=== PATIENT | male | born 1955 | race Hispanic/Latino ===

== ENCOUNTER → 2019-03-08 | Outpatient (CLI) | payer MEDICARE ==
--- NOTE | 2019-03-08 10:23 | Diagnostic Imaging Report ---
EXAM: US ABDOMEN COMPLETE DATE: 03/08/2019 9:10 AM INDICATION: Elevated liver enzymes COMPARISON: None TECHNIQUE: Transverse and longitudinal pickett scale and color doppler sonographic images of the upper abdomen were obtained. FINDINGS: There is no evidence of fluid or masses seen in the area of clinical concern in the right lower quadrant. LIVER 16.8 cm in the right midclavicular line. Increased echogenicity of the liver with normal contour, no masses. SPLEEN 9.7 cm in maximum diameter. Normal echogenicity, no masses. GALLBLADDER No gallbladder wall thickening, distension, stone, or pericholecystic fluid. NEgative reported sonographic Gr's sign. Gallbladder wall measures 2 mm. BILE DUCTS No intra nor extra-hepatic biliary dilation. Common bile duct measures 3 mm PANCREAS: Visualized portions are normal. RIGHT KIDNEY: 11.2 cm Echogenicity: Normal Collecting System: No hydronephrosis Stones: None Cyst/Mass: None LEFT KIDNEY: 11.4 cm Echogenicity: Normal Collecting System: No hydronephrosis Stones: None Cyst/Mass: None VESSELS: Aorta: Visualized portions are within normal size limits Inferior Vena Cava: Visualized portions are normal Main Portal Vein: 0.7 cm, normal size with hepatopetal flow. FREE FLUID: None IMPRESSION: Hepatomegaly and diffuse hepatic steatosis. Signed by: Humza Garza MD on 03/08/2019 10:19 AM
--- NOTE | 2019-03-08 10:34 | Diagnostic Imaging Report ---
EXAM: CT Chest WITHOUT intravenous contrast 03/08/2019 9:10 AM INDICATION: High risk lung cancer screening, smoking history COMPARISON: Chest radiograph of 04/17/2010 TECHNIQUE: Chest was scanned utilizing a multidetector helical scanner from the lung apex through the level of the adrenal glands without administration of IV contrast. Coronal and sagittal reformations were obtained. Routine protocol was performed. IV CONTRAST: None RADIATION DOSE: Total DLP: 211.2 mGy*cm. Dose modulation, iterative reconstruction, and/or weight based adjustment of the mA/kV was utilized to reduce the radiation dose to as low as reasonably achievable. COMPLICATIONS: None FINDINGS: LINES/ TUBES: None. LUNGS AND AIRWAYS: There is an 8 mm antidependent nodule along the anterior wall of the trachea, possibly a polyp. No focal consolidation or pulmonary edema. There are bilateral lower lobe predominant increased peripheral reticular opacities without honeycombing. Posterior right upper lobe 6 mm calcified granuloma. No suspicious pulmonary nodules. PLEURA: The pleural spaces are clear. HEART AND MEDIASTINUM: The thyroid gland is normal. No supraclavicular lymphadenopathy. Scattered prominent mediastinal lymph nodes not meeting size criteria for lymphadenopathy. No hilar lymphadenopathy. The heart is not enlarged. No pericardial effusion. Atherosclerotic calcifications involve the coronary arteries, thoracic aorta and great vessels. UPPER ABDOMEN: Limited noncontrast images of the upper abdomen demonstrate no focal abnormality of the partially visualized liver, spleen, pancreas, and adrenals. The kidneys are not visualized. BONES: Minimally displaced subacute left lateral rib fractures involving at least the sixth through 10th ribs with small amount of callus formation and bony bridging. SOFT TISSUES: Unremarkable. IMPRESSION: Bilateral lower lobe predominant increased peripheral reticular opacities without honeycombing consistent with interstitial lung disease in an NSIP pattern. 8mm nodule along the anterior wall of the trachea, possibly a polyp. Atherosclerotic arterial calcifications, including of the coronary arteries. Minimally displaced subacute left lateral rib fractures. Signed by: Humza Garza MD on 03/08/2019 10:31 AM
== END ==
LOC: CT 08:55
PROVIDERS: ATTEND Family Medicine
DX: R94.5 Abnormal results of liver function studies (principal); E87.1 Hypo-osmolality and hyponatremia; F17.200 Nicotine dependence, unspecified, uncomplicated
CPT/HCPCS: 71250; 76700